=== PATIENT | female | born 1940 | race Native Hawaiian/Other Pacific Islander ===

== ENCOUNTER 2017-01-05 11:01 | Outpatient (CLI) | payer OTHER ==
[2017-01-05 11:41] LABS: POTASSIUM 4.3 mmol/L (3.6-5.2); SODIUM 138 mmol/L (136-145)
[2017-01-05 12:05] LABS: PLATELET COUNT 269 K/uL (152-353)
== END 2017-01-05 19:30 | disposition home or self-care (01) ==
LOC: LABW 11:01
DX: I10 Essential (primary) hypertension (principal); E78.00 Pure hypercholesterolemia, unspecified; Z79.899 Other long term (current) drug therapy; Z51.81 Encounter for therapeutic drug level monitoring
CPT/HCPCS: 36415; 80053; 80061; 84443; 85027; 86140

== ENCOUNTER 2017-07-04 09:51 | Outpatient (CLI) | payer OTHER ==
[2017-07-04 11:03] LABS: POTASSIUM 4.4 mmol/L (3.6-5.2)
== END 2017-07-04 19:53 | disposition home or self-care (01) ==
LOC: LABW 09:51
PROVIDERS: Physician Assistant Medical
DX: I10 Essential (primary) hypertension (principal); E78.4 Other hyperlipidemia
CPT/HCPCS: 36415; 80053; 80061

== ENCOUNTER 2018-08-02 11:10 | Outpatient (CLI) | payer OTHER | END 2018-08-02 19:40 | disposition home or self-care (01) | LOC: LABW 11:10 | DX: R05 Cough (principal) | CPT/HCPCS: 87070; 87205 ==

== ENCOUNTER 2019-03-24 13:42 | Outpatient (CLI) | payer OTHER | END 2019-03-24 20:25 | disposition home or self-care (01) | LOC: RAD 13:42 | DX: R07.81 Pleurodynia (principal); M25.551 Pain in right hip ==

== ENCOUNTER 2019-05-07 10:49 | Outpatient (CLI) | payer OTHER ==
[2019-05-07 11:19] LABS: PLATELET COUNT 204 K/uL (152-353)
[2019-05-07 11:49] LABS: POTASSIUM 5.1 mmol/L (3.6-5.2)
== END 2019-05-07 23:37 | disposition home or self-care (01) ==
LOC: RAD 10:49
PROVIDERS: Internal Medicine
DX: I10 Essential (primary) hypertension (principal)
CPT/HCPCS: 36415; 80053; 80061; 81000; 84439; 84443; 85027

== ENCOUNTER 2021-02-11 13:38 | Inpatient (IN) | payer OTHER ==
[~2021-02-11] VITALS: Ht 162.6 cm; Wt 47.4 kg
--- NOTE | 2021-02-11 13:38 | NUR ---
PT TO ROOM 1106. PT ORIENTED TO ROOM AND CALL LIGHT. PT VERBALIZES UNDERSTANDING. PT ALERT AND ORIENTED BUT FORGETS QUICKLY. BED IN LOWEST POSITION, SRX3 CALL LIGHT IN REACH. BED ALARM ON AND BED IN LOWEST POSITION
[2021-02-11 16:31] VITALS: BP 128/54; TEMP 99.3; Ht 162.6 cm; Wt 47.4 kg
[2021-02-11 20:08] VITALS: BP 136/65; TEMP 99.6
--- NOTE | 2021-02-11 20:41 | NUR ---
PATIENTS DAUGHTER CALLED FOR AN UPDATE. DAUGHTER PRESENTED THE HIPPA # AND I UPDATED HER. SHE DECIDED TO NOT BACK BACK TO ON LICENSE OF [facility] IN THIS NIGHT
--- NOTE | 2021-02-11 23:41 | NUR ---
patient is alert but only oriented to person and occasionally place. patient has limmited bed mobility and is able to turn herself in the bed. the patient however cannot pull herself up in the bed, this requires a 2 person assist. patient can eat by helf but needs set up assist. patient uses a depends for urinary incont. patient can be changed with one person. patient assists with rolling. patient has a rt thigh surgical incision covered in an auquaseal bandage, scant dranage noted under the bandage. patient also reports muscle spasms in the right thigh. patient has a pleasent affect.
--- NOTE | 2021-02-12 00:11 | NUR ---
PATIENT WAS GIVEN A MUSCLE RELAXER AND TYEANOL FOR PAIN. PATIENT NOW DENIES ANY PAIN
--- NOTE | 2021-02-12 04:12 | NUR ---
PATIENT WAS REASSESED FOR PAIN AND PATIENT IS SLEEPING. BREATHS REGULAR AND NON LABORED
--- NOTE | 2021-02-12 07:43 | NUR ---
PT COMPLAINING OF RT GROIN PAIN AT THIS TIME, STATES HER MUSCLE WILL SPASM AT TIMES, PAIN MEDICATION GIVEN AT THIS TIME, WILL REEVALUATE, NO FURTHER NEEDS AT THIS TIME, PLACED CALL LIGHT WITHIN REACH, WILL CONTINUE TO MONITOR
--- NOTE | 2021-02-12 08:27 | NUR ---
PT IN WITH PATIENT TO ASSIST PATIENT WITH AMBULATING FROM BED TO CHAIR, PATIENT SAT UP FROM LF TO SITTING BY HERSELF NO ASSISTANCE, PT STOOD FROM SITTING POSTIION WITH HELP OF PT AND EXTENSIVE ASSITANCE, PT VERY UNSTEADY ON HER FEET, DUE TO PATIENT'S RT WRIST HURTING ALSO FROM FALL, IT IS DIFFICULT FOR PATIENT TO USE RT ARM FOR WEIGHT BEARING, PT AMBULATED FROM BED TO CHAIR WITH WALKER AND EXTENSIVE ASSIST FROM PT, BREAKFAST SET UP FOR PT AT THIS WITH NO FEEDING ASSISTANCE NEEDED, NO FURTHER NEEDS AT THIS TIME, WILL CONTINUE TO MONITOR, CALL LIGHT WITHIN REACH
--- NOTE | 2021-02-12 13:23 | NUR ---
S/P right hip fracture, HTN, Dementia, SWING BED patient from [facility] with S/P right hip fracture repair, HTN, Dementia, Regular diet plan and all food preferneces are honored and so stated on the diet card and substitutes are offered with all meals, dehydration, Fall, Fever, Hyponatremia, N/V, r leg pain, scoliasis, sepsis, trash to mouth and esophagus, tobacco abuse and smokes 1 ppd, confusion, cellulitis to right lower leg and is 64" and IBW = 120+/-10% (108 to 132 lbs.) and kcal needs for IBW x 25 to 40 = 1300 to 2200 ml/cc per day and fluids needs 1300 to 2200++ due dx. as tolerated and protein needs x 1.2 to 1.5 = 65 to 82 grams per day. BMI at 18.02 and is underweight and is 88% of IBW. See EMR for more info. PT and OT are working closely with the patient. RD Recommendations: 1-Monitor Labs 2-Add a MVI daily 3-Add Vitamin C 500 mg BID 4-Add ZNSO4 220 mg per day and d/c in 14 days 5-Add Protein tid 30 ml/cc 6-Add a supplement with meals 7-Increase fluids as tolerated and may want to add extra fluids to all trays 8-Add Yogurt with meals 9-Educate on smoking and STOP SMOKING 10-Add a supplement at HS if will take 11-Add an appetite stimulant 12-Monitor po intake to make sure diet is tolerated and if not get ST to evaluate.
[2021-02-12 20:31] VITALS: BP 119/55; TEMP 99
--- NOTE | 2021-02-13 00:29 | NUR ---
2100: PATIENT HAS DAUGHTER AT BEDSIDE. PATIENT IS PLEASENTLY CONFUSED. CREAM HAS BEEN APPLIED TO THE RED SPOT ON HER BUTTCHEEK. IT IS RED BUT BLANCHABLE. PATIENT RECIEVED A PAIN PILL AT 1800 AND PATIEN NOW DENIES ANY PAIN
--- NOTE | 2021-02-13 00:39 | NUR ---
PATIENT DENIES ANY PAIN AND HAS BEEN REPOSITIONED
--- NOTE | 2021-02-13 01:40 | NUR ---
PATIENT WAS CHANGED AND SHE REQUESTED APAIN MEDICATION FOR A 7/10 PAIN IN HER RT LEG
--- NOTE | 2021-02-13 04:58 | NUR ---
DAILY SKILLED NURSES NOTE: (MEDITECH MALFUNCTION) PATIENT IS ALERT AND ONLY ORIENTED TO PERSON. OCCASIONALLY ORIENTED TO PLACE. PATIENT IS RECOGNIZED HER DAUGHTER WHO IS ROOMING IN. THE PATIENT HAS LONG AND SHORT TERM MEMORY LOSS. PATIENT HAS NO PROBLEMS WITH SPEECH OR SWOLLOWING. PATIENT IS ABLE TO EAT ON HER OWN BUT NEEDS SET UP HELP ONLY. THE PATIENT IS ABLE TO MOVE HERSELF IN THE BED BUT NEED A ONE PERSON HELP CHANGING HER BRIEF. PATIENT HAS A SURGICAL SITE WOUND TO HER RIGHT HIP, COVERED WITH AN AQUASEAL. THE PATIENT ALSO HAS SOME BRUSING TO HER RIGHT WRIST AND REPORTS SHE HAS SLIGHT PAIN IN IT EVER SINCE SHE FELL. PATIENT HAS NO HEART, LUNG, OR RENAL CONCERNS AT THIS TIME. PATIENT VITALS ARE FOLLOWS: 99 TEMP, 18 RR, BP 119/55, 95% O2 ON ROOM AIR 83 HR,
--- NOTE | 2021-02-13 05:19 | NUR ---
PATIENT IS RESTING QUIETLY AND HER BREATHING IS STEADY NON LABORED
--- NOTE | 2021-02-13 07:48 | NUR ---
NOTIFIED DR. TRINH NO BASELINE LABS DRAWN ON ADMIT- V/O GIVEN TO DRAW CBC, CMP.
[2021-02-13 08:00] VITALS: BP 130/67; TEMP 98.8
--- NOTE | 2021-02-13 08:20 | NUR ---
DAUGHTER JAYY STATES THE POA PAPERWORK WILL BE RETRIEVED FROM THE BANK SUNDAY AND BROUGHT TO THE [facility].
--- NOTE | 2021-02-13 08:45 | NUR ---
PT UP TO RECLINER X 1 ASSIST. PT YASMANY FAIR.
[2021-02-13 09:21] LABS: PLATELET COUNT 305 K/uL (152-353)
--- NOTE | 2021-02-13 10:08 | NUR ---
PT C/O MUSCLE SPASMS IN RLE. PAIN MEDS ADMIN RX. ASSISTED PT WITH ROM, EDUCATION PROVIDED ON RELAXATON TECHNIQUES. PT REPOSITIONED FOR COMFORT, REPORTS DECREASED SPASMS.
--- NOTE | 2021-02-13 10:59 | NUR ---
PT ANXIOUS, CRYING OUT WITH INTERMITTENT SPASMS. PRN LORAZEPAM ADMIN PO.
[2021-02-13 20:16] VITALS: BP 119/57; TEMP 99.2
--- NOTE | 2021-02-14 01:13 | NUR ---
PATIENT BECAME CONFUSED AND KEPT PULLING HER BRIEF OFF AND CRYING. SHE ALSO ASKED, "WHO IS COMING TO EAT". WE REORIENTED THE PATIENT, PUT THE PATIENT IN ANOTHER BRIEF AND GAVE HER SOME 0.5 MG OF ATIVAN.
--- NOTE | 2021-02-14 01:45 | NUR ---
PATIENT HAS BECOME MORE CALM. WHILE ADJUSTING PATIENT THE PATIENT WAS ABLE TO PULL HERSELF UP IN BED WITH ONLY LIMMITED ASSIST
--- NOTE | 2021-02-14 05:12 | NUR ---
PATIENT HAS IMPROVED WITH BED MOBILITY. PATIENT WAS ABLE TO PULL HERSELF UP IN BED WITH COACHING AND LIMMITED ASSISTANCE. PATIENT IS ABLE TO TURN FROM SIDE TO SIDE TO HELP WITH BRIEF CHANGE. PATIENTS COGNITION HAS DETERIORATED TONIGHT. PATIENT HAS BEEN PULLING OFF HER BRIEF AND HAS BEEN INCREASINGLY CONFUSED. SHE WILL START CRYING MID SENTANCE AND THEN ABRUPTLY STOP. THE PATIENT HAS ALSO HAD TROUBLE STAYING ASLEEP TONIGHT. WE HAVE BEEN STEADFAST IN TRYING TO ORIENT THE PATIENT. THE ANIANXITY MEDICATION HAS HELPED MUCH WITH HER CRYING AND ANXIATY
--- NOTE | 2021-02-14 06:24 | NUR ---
PATIENT REPORTED SPASMS AND FLEXERIL WAS GIVEN
[2021-02-14 08:00] VITALS: BP 155/57; TEMP 99.4
--- NOTE | 2021-02-14 13:00 | NUR ---
PT CALLED TO BE PUT ON THE BEDSIDE COMMODE. COMPENSATION INTERN ASSISTED PT TO THE BEDSIDE COMMODE BY HOLDING ONTO PT'S ARM WHILE PT USED WALKER. PT VOIDED 50 ML AND ATTEMPTED TO HAVE A BM BUT COULD NOT. WHILE PT WAS GETTING OFF BED SIDE COMMODE, PT WENT TO TWIST TO GET HAIR BRUSH OFF OF THE BEDSIDE TABLE AND LOST BALANCE AND ALMOST FELL. COMPENSATION INTERN CAUGHT PT AND HELPED PT TO REGAIN BALANCE. COMPENSATION INTERN ASSISTED PT TO THE BED AND PT BECAME EMOTIONAL AND STATED THAT SHE WAS JUST SO TIRED. AFTER PT WAS CALMED DOWN SHE CLOSED HER EYES AND RESTED.
--- NOTE | 2021-02-14 18:00 | NUR ---
PT CALLED TO NURSES STATION STATING THAT HER RIDE WAS HERE TO PICK HER UP. HEAD OF PRECISION TARGETING WENT INTO PT'S ROOM AND PT STATED THAT SHE WAS READY TO GO. WHEN HEAD OF PRECISION TARGETING EXPLAINED TO PT THAT SHE WAS NOT GOING HOME TONIGHT, SHE BECAME VERY EMOTIONAL AND STATED THAT SHE HAS NEVER FELT SO CONFUSED. PT WAS REDIRECTED AND CALMED DOWN.
[2021-02-14 20:00] VITALS: BP 130/62; TEMP 99.9
--- NOTE | 2021-02-14 20:00 | NUR ---
ENTERED PATIENT'S ROOM AT THIS TIME. PATIENT HAD INCONTINENT EPISODE. SHE WAS UNABLE TO WAIT FOR ASSISTANCE. LINENS AND GOWN CHANGED. BRIEF PLACED ON PATIENT. SHE REPORTED MILD RIGHT HIP PAIN. SHIFT ASSESSMENT PERFORMED. NO OTHER CONCERNS OR COMPLAINTS VOICED BY PATIENT. PATIENT QUICK TO BECOME UPSET AT TIMES. BED LOCKED AND IN LOWEST POSITION. CALL LIGHT WITHIN EASY REACH.
[2021-02-15 07:57] VITALS: BP 122/67; TEMP 99.3
--- NOTE | 2021-02-15 11:00 | NUR ---
IN PT RM TO CHANGE BRIEF AT THIS TIME, EXTENSIVE ASSITANCE NEEDED, ASSISTED PT WITH PULLING DOWN PANTS, PT TURNED HERSELF IN THE BED AND I ASSISTED WTIH CHANING THE BRIEF AND CLEANING PT, I THEN ASSISTED PT WITH REDRESSING, PT TOLERATED WELL, PT HAS NO COMPLAINTS AT THIS TIME, NAD NOTED, PLACED CALL LIGHT WITHIN REACH, PT ORIENTED TO PERSON BUT NOT LOCATION AT THIS TIME, I EXPLAINED TO PT WHERE SHE WAS AND PT VERBALIZED UNDERSTANDING, NO FURTHER NEEDS AT THIS TIME
--- NOTE | 2021-02-15 19:30 | NUR ---
ASSISTED PATIENT TO BSC. EXTENSIVE ASSISTANCE REQUIRED. PATIENT IS ABLE TO WBAT ON RLE, BUT SHE DOES BECOME WEAK. PATIENT IS ALERT BUT CONFUSED ABOUT SITUATION. SHE IS EMOTIONAL AND BECOMES UPSET VERY EASILY. RE-ORIENTED PATIENT TO SURROUNDINGS AND SITUATION MULTIPLE TIMES. SHE VERBALIZED UNDERSTANDING AND SETTLED DOWN. PATIENT ASSISTED BACK TO BED. BED LOCKED AND IN LOWEST POSITION. CALL LIGHT IN REACH. BED ALARM ON.
[2021-02-15 20:00] VITALS: BP 103/53; TEMP 99
--- NOTE | 2021-02-15 22:00 | NUR ---
PATIENT ASSISTED TO BSC TWO MORE TIMES. STILL CONFUSED ABOUT SITUATION AT TIMES, BUT SHE IS ABLE TO ANSWER PERSON, PLACE AND TIME CORRECTLY. ASSISTED BACK TO BED. BED ALARM ON. CALL LIGHT WITHIN REACH.
--- NOTE | 2021-02-15 23:30 | NUR ---
PATIENT RESTING QUIETLY IN BED WITH EYES CLOSED NOW. RESPIRATIONS EVEN AND UNLABORED. NAD NOTED. BED ALARM REMAINS ON.
--- NOTE | 2021-02-16 05:40 | NUR ---
PATIENT RESTING IN BED WITH EYES CLOSED. RESPIRATIONS EVEN AND UNLABORED. NAD NOTED. BED ALARM ON. CALL LIGHT WITHIN EASY REACH.
--- NOTE | 2021-02-16 08:03 | NUR ---
PT GIVEN PO MED, PRN TYLENOL AND FLEXERIL ADMIN WITH ENSURE AND BENEPROTEIN. PT ALERT TO SELF, STATES PAIN IS "NOT BAD RIGHT NOW" AND SAYS SHE IS READY FOR BREAKFAST.
--- NOTE | 2021-02-16 09:34 | NUR ---
PT THERAPIST STATES PT C/O PAIN- PRN NORCO ADMIN AT THIS TIME.
--- NOTE | 2021-02-16 10:34 | NUR ---
PT UP IN RECLINER, STATES SHE HAS BEEN UP ALL DAY BUT HAS ONLY BEEN UP APPROX 1 HR. PT ENCOURAGED TO REMAIN IN RECLINER UNTIL AFTER LUNCH AND AGREES. PT EDUCATION PROVIDED ON DECONDITIONING AND IS ASSISTED WITH REPOSITIONING IN RECLINER, PILLOWS PLACED TO BACK, FEET ELEVATED. CALL LIGHT IN EASY REACH, CHAIR ALARM ON AND IN PLACE. CUTTER OPERATOR SOCKS ON, TABLE AND BELONGINGS IN REACH. DRESSING TO RT HIP INTACT WITH SMALL AMT DRAINAGE NOTED UNDER DRESSING. BRUISING NOTED TO RT THIGH AND RT WRIST. PEDAL PULSES PRESENT AND EQUAL BILATERALLY WITH OYSTER FISHERMAN <3 BLE.
--- NOTE | 2021-02-16 15:50 | NUR ---
ENSURE AND PRN TYLENOL ADMIN.
--- NOTE | 2021-02-16 16:18 | NUR ---
PT TEARFUL AND GETTING OUT OF BED WITHOUT ASSIST. ATIVAN ADMIN PO AT THIS TIME.
--- NOTE | 2021-02-16 17:22 | NUR ---
PT SITTING UP ON SIDE OF BED, ALARM GOING OFF- PT REMINDED TO CALL FOR ASSIST GETTING OUT OF BED, REORIENTED TO CALL LIGHT, PT VERBALIZES UNDERSTANDING. BED LOW, LOCKED, SR UP X2 FOR SAFETY WITH ALARM RESET. FAMILY IN TO SEE PT.
[2021-02-16 20:10] VITALS: BP 112/57; TEMP 99
--- NOTE | 2021-02-16 23:37 | NUR ---
PATIENT IS CONFUSED, SHE ASKED "IS [facility]URI HERE, WHAT SERVICES DO YOU OFFER". PATIENT KEEPS TO TRYING GET OUT OF BED. ANTI ANXITY MEDICATION GIVEN AND STAFF REORIENTED THE PATIENT
--- NOTE | 2021-02-17 03:36 | NUR ---
PATIENT IS ABLE TO MOVE HERSELF IN BED AND SIT UP. PATIENT NEED A ONE PERSON ASSIST TO THE BSC. AT TIMES IT IS LIMMITED BUT THE NIGHT PROGRESSES IT BECOMES EXTENSIVE.
[2021-02-17 08:00] VITALS: BP 93/58; TEMP 98.4
--- NOTE | 2021-02-17 08:24 | NUR ---
PT SITTING UP IN BED, FEEDING HERSELF BREAKFAST. NORCO ADMIN PER RX FOR RT HIP PAIN. OT AT BEDSIDE.
--- NOTE | 2021-02-17 09:19 | NUR ---
BP 98/58- WILL HOLD LOSARTAN FOR NOW AND REASSESS BP AT LUNCH.
--- NOTE | 2021-02-17 09:52 | NUR ---
PT UP TO RECLINER X 1 PERSON ASSIST BY PHYSICAL THERAPY. PT ALERT TO SELF, STATES " YOU LOOK FAMILIAR" TO SEVERAL STAFF MEMBERS BUT DOESN'T REMEMBER NAMES, IS AWARE SHE IS IN A HOSPITAL BUT UNSURE WHICH FACILITY. PT REORIENTED TO PLACE, DATE, STATES SHE HAS LITTLE PAIN CURRENTLY. THERAPY STATES SHE TOLERATED THERAPY WELL THIS AM AND WAS ACCEPTING OF TREATMENT.
--- NOTE | 2021-02-17 11:33 | NUR ---
BP 116/47- WILL CONTINUE TO HOLD BP MED.
--- NOTE | 2021-02-17 11:47 | NUR ---
PT C/O PAIN AND SPASMS IN RT- FLEXERIL AND TYLENOL ADMIN. PT UP IN RECLINER AFTER ASSISTED BATH.
--- NOTE | 2021-02-17 15:52 | NUR ---
FAMILY MEMBER AT BEDSIDE, CALLS NURSE TO ROOM AND ADVISES THAT PT WISHES TO GO HOME AND IS ASKING HIM TO TAKE HER HOME. EMT I/99 AND CHARGE NURSE TO ROOM TO SPEAK WITH PT. UR TO ROOM TO SPEAK WITH FAMILY MEMBER. PT TEARFUL AND UPSET- ACCEPTS OFFERED ATIVAN AND REQUESTS PAIN MEDICATION FOR PAIN TO . PT REORIENTED BY STAFF AND STATES SHE UNDERSTANDS SHE NEEDS TO GAIN STRENGTH BEFORE RETURNING HOME.
--- NOTE | 2021-02-17 15:52 | NUR ---
PT C/O PAIN TO RH, DOESN'T USE PAIN SCALE RATING, JUST STATES SHE IS REALLY HURTING. NORCO ADMIN PO RX. PT BACK TO BED AFTER SITTING UP IN RECLINER.
--- NOTE | 2021-02-17 18:36 | NUR ---
NO BM SINCE 02/13- REASSESSED ABD- ACTIVE BOWEL SOUNDS NOTED IN ALL 4 QUADRANTS, ABD FLAT, SOFT, NON-TENDER. PT STATES SHE HAS BEEN PASSING GAS.
--- NOTE | 2021-02-17 18:40 | NUR ---
ATTEMPTED TO CONTACT DR. GUTIERREZ FOR ORDER FOR CONSTIPATION- UNABLE TO REACH MD AT [phone].
[2021-02-17 20:16] VITALS: BP 120/74; TEMP 98.1
--- NOTE | 2021-02-17 22:49 | NUR ---
PATIENT HAD AN EXTENSIVE ASSIST TO THE BSC AND HAD A MEDIUM FORMED BP
--- NOTE | 2021-02-18 01:09 | NUR ---
PATIENT WAS EXTENSIVLY ASSISTED TO THE BSC. PATIENT HAD A BM AND ASKED FOR FLEXERIL FOR HER SPASM PAIN
--- NOTE | 2021-02-18 07:30 | NUR ---
INTO CHECK ON PT AND COMPLETE AM ASSESSMENT. PT NOTED TO BE LAYING IN BED IN HF AT THIS TIME. AWAKE AND ALERT. PT ORIENTED TO SELF, REORIENTED PT TO TIME, PLACE AND SITUATION. PT REMINDED TO CALL FOR ASSISTANCE. PT HR NOTED TO BE REGULAR ON AUSCULTAIONS, BILAT LUNG SOUNDS CLEAR THROUGH OUT. NO SWELLING NOTED TO BLE. DRESSING TO RIGHT HIP NOTED TO BE DRY AND INTACT. BRUISING TO RIGHT INNER THIGH IN VARIOUS STAGES OF HEALING.
--- NOTE | 2021-02-18 13:42 | NUR ---
PT C/O PAIN TO RIGHT HIP AT THIS TIME. PT GIVEN PAIN MEDICATION AT 0900 TODAY. FLEXERIL GIVEN AT THIS TIME. WILL CON'T TO MONITOR PT FOR PAIN. PT REQUESTS TO GET BACK IN THE BED. EXTENSIVE ASSISTANCE REQUIRED TO HELP PT STAND FROM CHAIR. PT REMINDED TO NOT PLACE WEIGHT ON RIGHT LEG, TO PUT HER WEIGHT ON LEFT LEG AND WALKER. PT CON'T TO PLACE WEIGHT ON RIGHT LEG EVEN WITH REMINDER. PT NOTED TO REQUIRE EXTENSIVE TO TOTAL ASSISTANCE WITH TRANSFERRING FROM CHAIR TO BED WITH USE OF WALKER WELL. PT NOTED TO BEND BOTH KNEES WHEN ATTEMPTING TO TRANSFER, PT REMINDED TO STAND UP STRAIGHT AND PUT WEIGHT ON LEFT LEG. PT STATES "I DON'T KNOW WHAT I NEED" THIS NURSE AND STUDENT NURSE LIFTED PT UNDER BOTH ARMS TO ASSIST HER WITH SITTING ON THE BED DUE TO PT TRYING TO SIT DOWN BEFORE GETTING TO THE BED. ALLOWED PT TO REST ON SIDE OF BED FOR A MOMENT BEFORE LAYING PT DOWN AND PULLING HER UP IN BED WITH THE DRAW SHEET X2 PERSON ASSIST. PT REPORTS FEELING RELEIF IN HER RIGHT LEG AFTER LAYING DOWN. PT CON'T TO BE CONFUSED WITH STATING "JUST PUT THAT BAG AT THE FOOT OF MY BED AND WHEN THEY COME IN TO GET ME TO GO HOME I WILL TAKE IT THEN" PT REMINDED THAT SHE IS NOT GOING HOME TODAY. PT LAYING IN BED IN HF AT THIS TIME BED ALARM ON. WILL CON'T TO MONITOR PT.
--- NOTE | 2021-02-18 14:45 | NUR ---
PT'S BED ALARM GOING OFF. IN TO CHECK ON PT. PT REPORTS THAT SHE NEEDS TO BE CHANGED. [employer] TECH STUDENTS CHANGED PT'S BREIF. PT ASSISTED MINIMALLY WITH ROLLING OVER BY PULLING ON SIDE RAILS WITH CUES. PT REMINDED TO CALL FOR ASSISTANCE.
--- NOTE | 2021-02-18 16:35 | NUR ---
PT BED ALARM GOING OFF. UPON ENTERING PT'S ROOM. PT NOTED TO BE LAYING IN BED IN LF. PT STATES "I DON'T KNOW WHY THAT THING KEEPS GOING OFF, I JUST LEANED OVER THE SIDE OF THE BED" REMINDED PT THAT IF SHE LEANS OVER THE SIDE OR TRIES TO GET UP IT WILL ALARM LETTING US KNOW, SO THAT SHE DOESN'T FALL. PT ENCOURAGED TO NOT LEAN OVER THE SIDE OF THE BED. PT REMAINS CONFUSED.
--- NOTE | 2021-02-18 16:44 | NUR ---
PT BED ALARM GOING OFF AGAIN. PT AGAIN REMINDED TO NOT LEAN OVER THE SIDE OR TRY TO GET UP WITHOUT ASSISTANCE.
--- NOTE | 2021-02-18 16:46 | NUR ---
PT CALLS TO NURSES STATION TO SAY "MY IS SUPPOSE TO BE CALLING FROM [place]"
--- NOTE | 2021-02-18 17:32 | NUR ---
PT CONTINUOUSLY TRYING TO GET UP OUT OF THE BED EVERY 15-30MINUTES. PT STATES "ALL OF THESE PEOPLE ARE CALLING ME" PT REORIENTED AND REMINDED SHE IS IN THE HOSPITAL FOR THERAPY FROM A HIP FX. PT'S BED ALARM REMAINS ON. PT ASSISTED UP IN BED AT THIS TIME AND SUPPER TRAY SET UP.
[2021-02-18 20:06] VITALS: BP 121/60; TEMP 98.9
--- NOTE | 2021-02-18 22:58 | NUR ---
02/18/21 AT 1920 PATIENT REQUESTING SOMETHING "TO CALM MY NERVES DOWN". PATIENT GIVEN ATIVAN PRESCRIBED PRN. NO ACUTE DISTRESS NOTED AT THIS TIME. CALL LIGHT WITHIN REACH AND BED ALARM REMAINS ON. WILL CONTINUE TO MONITOR.
--- NOTE | 2021-02-19 06:08 | NUR ---
02/19/21 AT 0605 PATIENT GIVEN NORCO 1 TAB PO FOR C/O HIP PAIN WITH PRS OF 5. PATIENT TOLERATED WELL. CALL LIGHT WITHIN REACH AND WILL CONTINUE TO MONITOR.
[2021-02-19 08:00] VITALS: BP 128/80; TEMP 98.6
--- NOTE | 2021-02-19 08:35 | NUR ---
Swing Bed meeting on Sunday and per Jovita who is over the SWING BED PROGRAM- patient forgot she had hip surgery, patient has dementia with confusion, petite lady, and is very happy with the food and meals, just wants to go svetlana and pain management. RD available as needed.
--- NOTE | 2021-02-19 12:50 | NUR ---
PT NOTED TO HAVE VISITOR AT BEDSIDE. PT LAYING IN BED ASSISTED THERE BY TRAVIS LIN WITH MAX ASSISTANCE. PT C/O HAVE SPASMS AND HURTING. PT GIVEN FLEXARIL PER MD ORDES. WILL CON'T TO MONITOR PT.
--- NOTE | 2021-02-19 14:09 | NUR ---
PT DAUGHTER HERE TO VISIT AT THIS TIME.
--- NOTE | 2021-02-19 20:40 | NUR ---
PT AWAKE LAYING IN BED WITH HOB ELEVATED IN POSITION OF COMFORT WITH NO ACUTE DISTRESS NOTED, TALKATIVE WITH ADMINISTRATIVE AIDE, RESP RATE NORMAL/NONLABORED, ON ROOM AIR, SKIN WARM AND DRY, RADIAL PULSES INTACT, DRESSING INTACT TO INCISION SITE TO R HIP WITH NO PROBLEMS NOTED TO SITE, BS+, LUNGS CLEAR. GAVE NIGHTLY PO MEDICATIONS WHOLE WITH NO PROBLEMS, PT HELD DRINK AND MEDICATION CUP WHILE TAKING HER MEDICATION. C/O SPASMS TO R LEG, 2058 GAVE FLEXERIL 5MG PO PRN, WILL MONITOR CLOSELY, RAILS UP X3, BED IN LOW POSITION, CALL LIGHT IN REACH, BED ALARM ON, ENCOURAGED TO CALL NEEDED, PT ACKNOWLEDGES UNDERSTANDING.
--- NOTE | 2021-02-19 21:30 | NUR ---
PT AWAKE WITH NO S/S OF DISTRESS OR PAIN NOTED, DENIES ANY MUSCLE SPASMS OR PROBLEMS, WILL MONITOR, RAILS UP, BED IN LOW POSITION, CALL LIGHT IN REACH, BED ALARM ON, ENCOURAGED TO CALL WITH CALL LIGHT NEEDED.
--- NOTE | 2021-02-20 01:05 | NUR ---
PT C/O "CONSTANT CRAMPING" PAIN THAT IS A "10" TO HER R HIP AREA, 0107 GAVE NORCO 5/325MG PO PRN FOR HER PAIN. TALKATIVE WITH LOZENGE DOUGH MIXER AND DENIES ANY OTHER PROBLEMS BUT NOTE PT IS CONFUSED. STATES HER DAUGHTER AND GRAND DAUGHTER WENT WITH HER YESTERDAY TO "[place]", REORIENTED PT. BROUGHT PT SOME PUDDING PER REQUEST. PT FEEDING SELF PUDDING WITH NO ACUTE DISTRESS NOTED, ONLY SET UP HELP NEEDED WHEN PT EATS AND WHEN PT TOOK HER MEDICATION. WILL MONITOR CLOSELY, RAILS UP, BED IN LOW POSITION WITH ALARM ON, ENCOURAGED TO CALL NEEDED, PT ACKNOWLEDGES UNDERSTANDING.
--- NOTE | 2021-02-20 01:45 | NUR ---
PT FOUND AWAKE WITH NO DISTRESS NOTED, STATES HER PAIN HAS DECREASED TO "ATLEAST A 5" SINCE PRN MEDICATION GIVEN FOR PAIN, NO REACTIONS NOTED, WILL MONITOR CLOSELY, RAILS UP X3, BED IN LOW POSITION, CALL LIGHT IN REACH, ENCOURAGED TO CALL NEEDED. BED ALARM REMAINS ON.
--- NOTE | 2021-02-20 03:20 | NUR ---
RESTING WITH EYES CLOSED, NO S/S OF PAIN OR DISTRESS NOTED, RAILS UP, BED IN LOW POSITION WITH ALARM ON, CALL LIGHT IN REACH, WILL MONITOR CLOSELY.
--- NOTE | 2021-02-20 11:29 | NUR ---
ASSISTED PT TO BSC AT THIS TIME, PT NEEDED EXTENSIVE ASSISTANCE TO PIVOT FROM BED TO BSC COMMODE, PT NEEDED EXTENSIVE ASSISTANCE WITH CLEANING AND LIMITED ASSISTANCE WITH PIVOTING BACK TO BED USING THE WALKER, NAD NOTED, PT NEEDED NO ASSISTANCE MOVING HERSELF UP IN THE BED, NO FURTHER NEEDS AT THIS TIME, PLACED CALL LIGHT WITHIN REACH
--- NOTE | 2021-02-20 17:04 | NUR ---
PT REQUESTED TO BE MOVED TO THE CHAIR. PT REQUIRED A 1 PERSON ASSIST TO GET TO CHAIR. PT WAS UNSTEADY AND NEEDED TO BE HELD ONTO. PT IS NOW RESTING UPRIGHT IN THE CHAIR WITH FEET ELEVATED.
[2021-02-20 20:01] VITALS: BP 117/61; TEMP 98.6
--- NOTE | 2021-02-20 20:30 | NUR ---
PT AWAKE LAYING IN BED WITH NO S/S OF PAIN DISTRESS NOTED, TALKATIVE WITH FORGING MACHINE OPERATOR, RESP RATE NONLABORED, ON ROOM AIR, DRESSING DRY AND INTACT TO INCISION SITE TO R HIP. PT REPOSITIONED HER SELF IN BED FORGING MACHINE OPERATOR ASSISTED BY USING BED CONTROLS TO LOWER HOB TO ALLOW PT TO MOVE UP IN BED THEN FORGING MACHINE OPERATOR USED BED CONTROLS TO ELEVATED HOB. PT GIVEN NIGHTLY MEDICATIONS ALONG WITH FLEXERIL 5MG PO PRN(PER PT REQUEST FOR C/O SPASMS TO R HIP/LEG). PT TOOK PILLS WHOLE, NOTE PT HELPED WITH SET UP THEN GIVEN DRINK AND MEDICATION CUP WHICH SHE HELD HER SELF AND TOOK MEDICATIONS BY MOUTH. DENIES ANY OTHER NEEDS. RAILS UP X3, BED IN LOW POSITION WITH ALARM ON, CALL LIGHT IN REACH, ENCOURAGED TO CALL NEEDED, PT ACKNOWLEDGES UNDERSTANDING.
--- NOTE | 2021-02-20 23:15 | NUR ---
RESTING WITH EYES CLOSED, NO S/S OF PAIN OR DISTRESS NOTED, WILL MONITOR, RAILS UP X3, BED IN LOW POSITION WITH ALARM ON, CALL LIGHT IN REACH.
--- NOTE | 2021-02-21 01:01 | NUR ---
RESTING IN BED WITH EYES CLOSED, NO S/S OF PAIN OR DISTRESS NOTED, WILL MONITOR CLOSELY, RAILS UP X3, BED IN LOW POSITION WITH ALARM ON, CALL LIGHT IN REACH.
--- NOTE | 2021-02-21 17:54 | NUR ---
Mrs. Fontaine's daughter Nelly Mckeon is visiting her at bedside. Discussed therapy's recommendation during the 02/18/2021 IDT meeting that Mrs. Hua needs further therapy services to promote safety, strength and endurance. Daughter verbalized understanding and is in agreement. Mrs. Hua has an appointment with Dr. Abreu on 02/25/2021 at 10 AM. Daughter Nelly verbalized that she will take her mother to this appointment and then bring her back. Opportunity for further questions given, denied questions or concerns. Both patient and daughter verbalized being pleased at the progress she has made since admission to this center and they are both looking forward to her being able to return back home.
[2021-02-21 19:51] VITALS: BP 105/52; TEMP 98.2
--- NOTE | 2021-02-22 03:40 | NUR ---
PATIENTS BRIEF WAS CHANGED WITH A ONE PERSON LIMMITED ASSIST. PATIENT IS ABLE TO PULL SELF UP IN THE BED WITH COACHING
--- NOTE | 2021-02-22 05:07 | NUR ---
PATIENT JUST FINISHED SITTING UP IN HIGH FOWLERS AND EATING A SNACK. SHE IS NOW LAYING DOWN FOR A REST
[2021-02-22 07:33] VITALS: BP 118/69; TEMP 98.9
--- NOTE | 2021-02-22 11:00 | NUR ---
PT AT BEDSIDE.
--- NOTE | 2021-02-22 15:30 | NUR ---
PATIENT REQUESTED A SNACK. PATIENT UP IN CHAIR WITH CHAIR ALARM IN PLACE. NAD NOTED.
--- NOTE | 2021-02-22 18:32 | NUR ---
PATIENT USED BEDSIDE COMMODE AND RETURNED TO SITTING BY NURSE'S STATION. NAD NOTED. PATIENT SEEMS CHEERFUL TO BE AROUND STAFF WITH INTERACTION.
[2021-02-22 20:26] VITALS: BP 111/57; TEMP 98
--- NOTE | 2021-02-22 23:59 | NUR ---
PATIENT USED CALL LIGHT TO ASK FOR HELP TO THE BATHROOM. PATIENT HIGHLY IMVOLVED IN BRIEF CHANGE
--- NOTE | 2021-02-23 00:22 | NUR ---
PATIENT IS NOW RESTING AND HER BREATHING IS NON-LABORED AND STEADY
--- NOTE | 2021-02-23 11:59 | NUR ---
PT BED ALARM SOUNDED. RUEL OLIVER AT BEDSIDE. ASSISTED PT TO BSC WITH EXTENSIVE ASSISTANCE. PT REMINDED TO CALL TO NURSES STATION AND DON'T GET UP WITHOUT ASSISTANCE. PT ASSISTED BACK TO BED AND BED ALARM TURNED BACK ON.
[2021-02-23 20:00] VITALS: BP 134/62; TEMP 98.3
[2021-02-24 08:00] VITALS: BP 120/63; TEMP 97.9
[2021-02-24 19:50] VITALS: BP 114/60; TEMP 98
[2021-02-25 08:00] VITALS: BP 117/70; TEMP 98.2
--- NOTE | 2021-02-25 08:29 | NUR ---
THERAPY AT BEDSIDE ASSISTING PATIENT TO GET DRESSED, BRUSH TEETH AND HAIR, AND GET READY FOR APPOINTMENT.
--- NOTE | 2021-02-25 09:00 | NUR ---
PATIENT LEFT VIA WHEELCHAIR TO PERSONAL VEHICLE WITH DAUGHTER DRIVING. PATIENT TO RETURN AFTER FOLLOW UP APPOINTMENT WITH DR. YAN IN [place].
--- NOTE | 2021-02-25 09:02 | NUR ---
02/25/21 1463 PHYSICAL THERAPY PRESENT IN ROOM WITH PATIENT.NO DISTRESS NOTED.CC
--- NOTE | 2021-02-25 13:25 | NUR ---
PATIENT IS BACK FROM HER APPOINTMENT. SHE IS IN BED RESTING. NAD NOTED.
[2021-02-25 19:52] VITALS: BP 117/60; TEMP 99
--- NOTE | 2021-02-25 22:58 | NUR ---
PATIENT IS LESS TEARFUL TONIGHT. PATIENT WITH CUING CAN PULL HERSELF UP IN THE BED AND WITH SET UP CAN ADMINISTER MEDICATION SND FEED HERSELF. PATIENT IS USING THE CALL LIGHT TO INFORM STAFF OF [facility].
--- NOTE | 2021-02-26 02:16 | NUR ---
PATIENT IS RESTING QUIETLY, BREATHING NON LABORED. BED LOCKED IN LOW POSTION AND SIDE RAILS UP X2
--- NOTE | 2021-02-26 12:00 | NUR ---
PATIENT RESTING IN CHAIR. NAD NOTED. PATIENT STATES SHE IS READY TO GO HOME.
[2021-02-26 19:58] VITALS: BP 143/65; TEMP 99.2
--- NOTE | 2021-02-26 20:40 | NUR ---
PM MEDS GIVEN AT THIS TIME. PT IS ALERT AND ORIENTED AND AWARE OF SURROUNDINGS AT THIS TIME. PT. REACTIVE TO VERBAL STIMULI. CALL LIGHT WITHIN REACH WITH BED IN LOWEST POSITION AND NAD NOTED.
[2021-02-27 08:00] VITALS: BP 116/66; TEMP 99.2
--- NOTE | 2021-02-27 08:30 | NUR ---
PATIENT RESTING IN BED. UPPER SIDE RAILS UP X2. NAD NOTED.
--- NOTE | 2021-02-27 14:33 | NUR ---
PATIENT APPEARS RESTLESS AND FORGETS TO USE CALL LIGHT BEFORE STANDING UP. PATIENT OFFERED PAINTING AND COLORING ACTIVITIES DISTRACTION. PATIENT REFUSES. PATIENT GIVEN PRN ATIVAN. WILL CONTINUE TO MONITOR.
--- NOTE | 2021-02-27 18:16 | NUR ---
1500 PATIENT KEPT GETTING OUT OF CHAIR AND BED WITHOUT USING CALL LIGHT. PATIENT SAT AT NURSES STATION IN WHEELCHAIR FOR A WHILE. PATIENT KEPT ASKING WHY SHE WAS HERE IN THE HOSPITAL. SHE APPEARED VERY CONFUSED. PATIENT PLACED BACK IN BED AFTER SHE GREW TIRED. PATIENT TOOK A NAP UNTIL SUPPER TRAYS WERE DELIVERED.
--- NOTE | 2021-02-27 18:24 | NUR ---
PATIENT BED ALARM DID NOT SOUND. PATIENT FOUND TO BE AMBULATING TO BATHROOM WITH NO WALKER. PATIENT ASSISTED TO BATHROOM AND PLACED BACK IN BED. BED ALARM ON AND NAD NOTED.
[2021-02-27 19:50] VITALS: BP 108/72; TEMP 98.6
--- NOTE | 2021-02-27 23:22 | NUR ---
PATIENT IS A LIMITED ASSIST TO THE BEDSIDE COMMODE. SHE IS ABLE TO BEAR MORE WEIGHT ON HER RT SIDE. PATIENT IS ANXIOUS AND CONFUSED AND KEPT TRYING TO GET OUT OF BED SAYING, " I WANT TO GO HOME." STAFF ATTEMPTED TO REORIENT THE PT. THE PATIENT BEGAN TO CRY AND SAID SHE "JUST WAS TIRED AND WANTED TO SLEEP." PATIENT WAS GIVEN PRN ATIVAN AND IS RESTING WELL NOW
--- NOTE | 2021-02-28 03:56 | NUR ---
PATIENT BRIEF HAS BEEN CHANGED AND PATIENT DENIES ANY PAIN
[2021-02-28 08:00] VITALS: BP 174/60; TEMP 98.7
--- NOTE | 2021-02-28 09:24 | NUR ---
ASSISTED PT TO AND FROM BSC, PT USED WALKER TO AMBULATE, PT UNSTEADY ON FEET, LIMITED ASSISTANCE USED TO HELP PT TO AND FROM BSC WITH WALKER, NO ASSISTANCE NEEDED WITH CLEANING, PT AMBULATED BACK TO CHAIR WITH X1 ASSIST, MORNING MEDICATIONS GIVEN, NAD NOTED, NO FURTHER NEEDS AT THIS TIME, WILL CONTINUE TO MONITOR, CALL LIGHT WITHIN REACH
--- NOTE | 2021-02-28 11:22 | NUR ---
PT IN RM WITH PATIENT AT THIS TIME, PATIENT IS SITTING UP IN CHAIR PERFORMING LEG EXERCISES WITH NO ASSISTANCE, NAD NOTED, PATIENT HAS NO NEEDS AT THIS TIME, WILL CONTINUE TO MONITOR
--- NOTE | 2021-02-28 12:51 | NUR ---
ASISSTED PT FROM CHAIR TO BSC AND THEN TO BED, PT PUSHED UP FROM CHAIR AND STEPPED TO BSC WIHOUT ASSISTANCE JUST SUPERVISION, PT UNDRESSED SELF, PT THEN CLEANED HERSELF AND REDRESSED WITHOUT ASSISTANCE, PT ABMULATED FROM BSC TO BED WITHOUT ASSISTANCE, PT POSITIONED HERSELF IN BED AND I ASSISTED WITH MOVING HER HOB UP, NAD NOTED, PT STATES SHE IS HAVING SOME CRAMPING IN HER RT HIP, I WILL ADMINISTER MEDICATION AND REASSES, PT STATES SHE WANTS TO TAKE A NAP AT THIS TIME, NO FUTHER NEEDS, PLACED CALL LIGHT WITHIN REACH, BED ALARM ON, WILL CONTINUE TO MONITOR
[2021-02-28 20:00] VITALS: BP 122/57; TEMP 99
--- NOTE | 2021-02-28 23:53 | NUR ---
02/28/21 AT 2340 PATIENT ASSITED TO BEDSIDE COMMODE AND PATIENT VOIDED OF CLEAR YELLOW URINE AND CLEANED HER SELF WITH WET WIPE. PATIENT STATES SHE "IS FEELING MUCH BETTER AND SO READY TO GO HOME". PATIENT DENIES ANY COMPLAINTS AT THIS TIME. NO ACUTE DISTRESS NOTED. CALL LIGHT WITHIN REACH AND WILL CONTINUE TO MONITOR.
[2021-03-01 08:00] VITALS: BP 121/67; TEMP 97.8
--- NOTE | 2021-03-01 14:15 | NUR ---
PT CONTINUOUSLY TRYING TO GET OUT OF CHAIR AND SAYING THAT SHE DOES NOT KNOW WHERE SHE IS AND WHAT SHE IS SUPPOSE TO BE DOING, I REORIENTED PT TO RM AND SITUATION, PT STATES SHE IS NOT IN ANY PAIN AT THIS TIME JUST WANTS TO GO HOME, NAD NOTED, CHAIR ALARM IS ON AND CALL LIGHT IS PLACED WITHING REACH I REEDUCATED PT ON HITTING THE CALL LIGHT BEFORE GETTING UP, PT VERBALIZED UNDERSTANDING, WILL CONTINUE TO MONITOR
[2021-03-01 20:14] VITALS: BP 115/56; TEMP 99.2
--- NOTE | 2021-03-02 09:20 | NUR ---
ASSISTED PT TO BATHROOM TO VOID, PT AMBULATORY WITH WALKER, TOLERATED WELL.
--- NOTE | 2021-03-02 09:30 | NUR ---
PT HAD SMALL BM. PT ABLE TO CLEAN SELF. ASSISTED PT TO SINK TO WASH HANDS, PT THEN BRUSHED TEETH, TOLERATED WELL. PT MANEUVERED BACK TO CHAIR, CHAIR ALARM IN PLACE, PT INSTRUCTED TO CALL FOR ASSISTANCE BEFORE GETTING UP. CALL LIGHT PLACED WITHIN REACH.
--- NOTE | 2021-03-02 14:30 | NUR ---
PATIENT DISCHARGED HOME VIA WHEELCHAIR TO PERSONAL VEHICLE WITH DAUGHTER DRIVING.
== END 2021-03-02 16:30 | disposition home health service (06) | DRG 561 ==
LOC: MED/SURG 13:38
PROVIDERS: ADMIT Internal Medicine Endocrinology, Diabetes & Metabolism; ATTEND Internal Medicine Endocrinology, Diabetes & Metabolism
DX: S72.141D Displaced intertrochanteric fracture of right femur, subsequent encounter for closed fracture with routine healing (principal); M62.81 Muscle weakness (generalized); Z73.9 Problem related to life management difficulty, unspecified; R48.8 Other symbolic dysfunctions; I10 Essential (primary) hypertension; G47.33 Obstructive sleep apnea (adult) (pediatric); Z91.81 History of falling; R62.7 Adult failure to thrive
CPT/HCPCS: 36415; 80053; 81000; 85027; 87081; 87635; U0003

== ENCOUNTER 2022-03-23 10:00 | Inpatient (IN) | payer OTHER | END 2022-04-19 09:42 | disposition still patient (30) | LOC: PAVB 10:00 | PROVIDERS: ADMIT Internal Medicine; ATTEND Internal Medicine ==

== ENCOUNTER 2022-03-24 06:17 | Outpatient (CLI) | payer OTHER ==
[2022-03-24 06:37] LABS: PLATELET COUNT 178 K/uL (152-353)
[2022-03-24 07:44] LABS: POTASSIUM 3.8 mmol/L (3.6-5.2)
== END 2022-03-24 19:54 | disposition home or self-care (01) ==
LOC: LAB 06:17
PROVIDERS: ATTEND Internal Medicine
DX: Z02.2 Encounter for examination for admission to residential institution (principal); Z79.899 Other long term (current) drug therapy
CPT/HCPCS: 80053; 80061; 82306; 82607; 82728; 82746; 83036; 83540; 84443; 85027; 87081

== ENCOUNTER 2022-04-19 14:45 | Inpatient (IN) | payer OTHER | END 2022-05-19 09:09 | disposition still patient (30) | LOC: PAVB 14:45 | PROVIDERS: ADMIT Internal Medicine; ATTEND Internal Medicine ==

== ENCOUNTER 2022-05-18 10:25 | Outpatient (CLI) | payer OTHER | END 2022-05-18 20:36 | disposition home or self-care (01) | LOC: RAD 10:25 | PROVIDERS: ATTEND Internal Medicine | DX: R26.2 Difficulty in walking, not elsewhere classified (principal); Z87.81 Personal history of (healed) traumatic fracture; Z09 Encounter for follow-up examination after completed treatment for conditions other than malignant neoplasm ==

== ENCOUNTER 2022-05-19 11:54 | Inpatient (IN) | payer OTHER | END 2022-06-19 09:19 | disposition still patient (30) | LOC: PAVB 11:54 | PROVIDERS: ADMIT Internal Medicine; ATTEND Internal Medicine ==

== ENCOUNTER 2022-05-29 11:08 | Outpatient (CLI) | payer OTHER | END 2022-05-29 19:01 | disposition home or self-care (01) | LOC: US 11:08 | PROVIDERS: ATTEND Internal Medicine | DX: M79.661 Pain in right lower leg (principal) ==

== ENCOUNTER 2022-06-19 12:14 | Inpatient (IN) | payer OTHER | END 2022-07-20 09:05 | disposition still patient (30) | LOC: PAVB 12:14 | PROVIDERS: ADMIT Internal Medicine; ATTEND Internal Medicine ==

== ENCOUNTER 2022-07-20 12:18 | Inpatient (IN) | payer OTHER | END 2022-08-19 10:30 | disposition still patient (30) | LOC: PAVB 12:18 | PROVIDERS: ADMIT Internal Medicine; ATTEND Internal Medicine ==

== ENCOUNTER 2022-09-11 16:36 | Emergency (ER) | payer OTHER ==
[~2022-09-11] VITALS: Ht 162.6 cm; Wt 48.1 kg
[2022-09-11 16:55] VITALS: TEMP 98.1
[2022-09-11 19:00] VITALS: BP 106/72
== END 2022-09-11 19:00 | disposition home or self-care (01) ==
LOC: ED 16:36
DX: S22.42XA Multiple fractures of ribs, left side, initial encounter for closed fracture (principal); W06.XXXA Fall from bed, initial encounter; Y92.89 Other specified places as the place of occurrence of the external cause
CPT/HCPCS: 96372; 99283; J2270; J2550